=== PATIENT | female | born 1990 | race Two or more races ===

== ENCOUNTER 2018-11-22 05:10 | Emergency (ER) | payer SELFPAY ==
[~2018-11-22] VITALS: Ht 162.6 cm; Wt 61.2 kg
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
--- NOTE | 2018-11-22 07:03 | NUR ---
Patient is resting comfortably in bed with eyes closed. Easily aroused. VSS. NAD. SAFETY MEASURES IN PLACE.
--- NOTE | 2018-11-22 07:11 | NUR ---
Patient eloped from facility. ER MD notified.
[2018-11-22 07:12] VITALS: BP 128/76
== END 2018-11-22 07:13 | disposition left against medical advice (07) ==
LOC: ER 05:10
DX: F10.129 Alcohol abuse with intoxication, unspecified (principal); Z60.2 Problems related to living alone; Y90.9 Presence of alcohol in blood, level not specified